=== PATIENT | female | born 1960 | race Caucasian/White ===

== ENCOUNTER → 2016-04-07 | Outpatient (CLI) | payer OTHER ==
[2016-04-07 09:43] LABS: HEMOGLOBIN A1C 7.29 % (4.2-6.0); MEAN BLOOD GLUCOSE (CALC) 156.757 mg/dL
[2016-04-07 10:02] LABS: CREATININE, URINE 22.9 MG/DL (15-500)
== END ==
LOC: LAB 09:12
PROVIDERS: ATTEND Internal Medicine
DX: E11.9 Type 2 diabetes mellitus without complications (principal)
CPT/HCPCS: 36415; 82043; 83036; 99214

== ENCOUNTER → 2016-04-27 | Outpatient (CLI) | payer OTHER ==
[2016-04-27 12:24] LABS: ASPARTATE AMINO TRANSFERASE 56 IU/L (8-39); BILIRUBIN,TOTAL 0.4 mg/dL (0.3-1.2); BLOOD UREA NITROGEN 14 mg/dL (7-22); BUN/CREATININE RATIO 15.55 (6-20); CALCIUM 9.6 mg/dL (8.7-10.7); CHLORIDE 95 meq/L (98-112); CREATININE 0.9 mg/dL (0.50-1.20); EST GLOMERULAR FILTRATION > 60 (>60 ml/min/1.73m(2)); GLUCOSE 226 mg/dL (78-110); POTASSIUM 4.4 meq/L (3.8-5.2); SODIUM 136 meq/L (135-145); TOTAL PROTEIN 7.3 g/dL (6.1-8.0)
--- NOTE | 2016-04-27 12:56 | DI ---
CT ABDOMEN SCAN WITHOUT IV CONTRAST, 04/27/2016 11:52 AM : Clinical History: Generalized abdominal pain. Previous Exam: 07/16/2011. Scans are performed from the lower lung bases through the liver and kidneys without IV contrast. Sagi ttal and coronal reformatted images are generated. Atelectasis is present in the left lower lobe. There is diffuse fatty infiltration of the liver with mild hepatomegaly. The gallbladder is grossly normal. There is no abnormality of the spleen, pancreas , and adrenal glands. Both kidneys are normal in size, shape, position and contour. There is no hydro nephrosis or hydroureter. No renal or ureteral calculi are present. There are no abnormal retrocrural or periaortic nodes. No ascites is present. READING: Mild hepatomegaly with diffuse fatty infiltration of the liver. The remainder of the examination is n ormal. CT PELVIS SCAN WITHOUT IV CONTRAST, 04/27/2016 11:52 AM : Clinical History: See above. Previous Exam: 07/16/2011. Scans are performed from the inferior margin of the liver and kidneys to the symphysis pubis without IV contrast. There is no free fluid collection and there is no adenopathy. The appendix is normal. The small bowel , terminal ileum, and ileocecal valve are normal. The colon is also normal. There is a small umbilica l hernia through which only mesenteric fat has herniated. Since the previous exam, the patient has winkler d a right total hip replacement and a hysterectomy. Neither ovary is visualized with certainty. READING: Normal CT pelvis scan.
[2016-04-27 13:39] LABS: HEMATOCRIT 44.7 % (37.0-47.0); HEMOGLOBIN 14.2 g/dL (12.0-16.0); MEAN CORPUSCULAR HGB CONC 31.8 g/dL (33-37); MEAN PLATELET VOLUME 10.2 FL (7.4-12.2); RDW COEFFICIENT OF VARIATION 13.3 % (11.5-14.5); RED BLOOD COUNT 5.07 10^6/uL (4.20-5.40); WHITE BLOOD COUNT 6.92 10^3/uL (4.8-10.8)
== END ==
LOC: MOB LAB 11:14
PROVIDERS: ATTEND Nurse Practitioner Family
DX: R10.84 Generalized abdominal pain (principal); I10 Essential (primary) hypertension; K92.1 Melena; K76.0 Fatty (change of) liver, not elsewhere classified; R16.0 Hepatomegaly, not elsewhere classified
CPT/HCPCS: 36415; 74176; 80053; 82272; 85027

== ENCOUNTER → 2016-05-10 | Outpatient (CLI) | payer OTHER | LOC: MMPC 11:11 | PROVIDERS: ATTEND Internal Medicine | DX: R10.84 Generalized abdominal pain (principal) | CPT/HCPCS: 99214; G0463 ==

== ENCOUNTER → 2016-08-10 | Outpatient (CLI) | payer OTHER ==
[2016-08-11 13:53] LABS: CREATININE, URINE 31.8 MG/DL (15-500)
== END ==
LOC: LAB 11:43
PROVIDERS: ATTEND Internal Medicine
DX: E11.9 Type 2 diabetes mellitus without complications (principal)
CPT/HCPCS: 82043

== ENCOUNTER → 2016-08-11 | Outpatient (CLI) | payer OTHER | LOC: MMPC 11:11 | PROVIDERS: ATTEND Internal Medicine | DX: E11.9 Type 2 diabetes mellitus without complications (principal); J43.2 Centrilobular emphysema; I10 Essential (primary) hypertension; G89.29 Other chronic pain; Z02.89 Encounter for other administrative examinations | CPT/HCPCS: 83037; 99214; G0463 ==

== ENCOUNTER → 2016-10-13 | Outpatient (CLI) | payer OTHER | LOC: MMPC 09:00 | DX: S40.011A Contusion of right shoulder, initial encounter (principal); S70.01XA Contusion of right hip, initial encounter; S80.211A Abrasion, right knee, initial encounter; W18.09XA Striking against other object with subsequent fall, initial encounter | CPT/HCPCS: 99213; G0463 ==

== ENCOUNTER → 2016-11-09 | Outpatient (CLI) | payer OTHER ==
[2016-11-09 11:56] LABS: HEMOGLOBIN A1C 7.03 % (4.2-6.0)
[2016-11-09 12:24] LABS: CREATININE, URINE 53.6 MG/DL (15-500)
== END ==
LOC: LAB 11:37
PROVIDERS: ATTEND Internal Medicine
DX: E11.9 Type 2 diabetes mellitus without complications (principal); Z72.0 Tobacco use
CPT/HCPCS: 36415; 82043; 83036